=== PATIENT | female | born 1990 | race Hispanic/Latino ===

== ENCOUNTER 2017-05-14 06:49 | Day surgery (SDC) | payer OTHER ==
[2017-05-14] MEDS ORDERED: ceFAZolin IV 1 gm in Dextrose 1 GM/50 ML BAG IVPB ONE (07:19)
[2017-05-14] MEDS ORDERED: Lidocaine 2% w Epi 1:100,000 Inj IJ ONE (07:20)
[2017-05-14] MEDS ORDERED: EPINEPHrine 1:1000 Nasal Sol(30mL) ONE (07:20)
[2017-05-14] MEDS ORDERED: Acetaminophen-Codeine 300/30 mg Tab PO PRN (07:41)
[2017-05-14] MEDS ORDERED: Dextrose 5%/0.45% NS 1,000 ML IV SCH (07:45)
[2017-05-14] MEDS ORDERED: Lactated Ringer's 1,000 ML IV ONE (09:55)
[2017-05-14] MEDS ORDERED: Propofol 10 mg/ml Inj (20 ML) ONE (10:06)
[2017-05-14] MEDS ORDERED: Rocuronium 10 mg/ml (5 ml) ONE (10:07)
[2017-05-14] MEDS ORDERED: Midazolam 2 MG/2 ML VIAL ONE (10:09)
[2017-05-14] MEDS ORDERED: HYDROmorphone 0.5 mg/0.5 ml ISec IVP PRN (10:54)
[2017-05-14] MEDS ORDERED: Neostigmine Methylsulfate 3mg/3ml Syringe IV ONE (11:11)
[2017-05-14] MEDS ORDERED: HYDROmorphone 0.5 mg/0.5 ml ISec ONE (11:57)
[2017-05-14 12:44] VITALS: RESP 18
[2017-05-14 14:15] VITALS: BP 98/60; PULSE 74; TEMP 97.9; O2SAT 99
--- NOTE | 2017-05-14 20:02 | OP ---
PROCEDURE DATE: 05/14/2017 PREOPERATIVE DIAGNOSES: Deviated septum, enlarged turbinates, and sinusitis. POSTOPERATIVE DIAGNOSES: Deviated septum, enlarged turbinates, and sinusitis. PROCEDURE: Septoplasty, endoscopic bilateral maxillary antrostomy, endoscopic bilateral ethmoidectomy, endoscopic bilateral frontal sinusotomy, endoscopic bilateral sphenoidotomy, endoscopic bilateral inferior turbinate reduction. FINDINGS: Deviated septum, enlarged turbinates, maxillary antrum stenosed on both sides, sphenoid antrum stenosed on both sides, frontal recess stenosed on both sides, sinusitis changes noted at the ethmoid sinuses. DESCRIPTION OF PROCEDURE: The patient was brought into the room, placed in supine position. Anesthesia was initiated through an ET tube. Adrenaline-soaked pledgets were inserted into the nasal cavity, remained there for at least 5 minutes and removed. The septum was injected with lidocaine with epinephrine on both sides. A Lyford's incision was made on the left and mucoperichondrial flap was raised. A vertical incision was made in the cartilage leaving a 1.5 cm anterior and superior strut and the mucoperichondrial flap was raised on the other side. Deviated portion of the bone and cartilage were removed. A quilting suture was used to suture the two flaps together and closed the Livan's incision. A 0-degree scope was inserted into the nasal cavity. The inferior turbinates were noted to be enlarged. They were reduced using scissors going from inferior to superior and anterior to posterior direction on both sides, first on the right down to the left. Next, middle turbinates were injected on both side with lidocaine with epinephrine. Attention was turned to the left and the turbinate was medialized. The uncinate process was medialized using a freer elevator and removed using forceps. The debrider was used to enter the ethmoid bulla inferomedially going posteriorly to the basal lamella then anteriorly and superiorly until the ethmoid bulla was removed. The basal lamella was entered. The posterior ethmoid cells were entered and opened. The skull base was identified and followed anteriorly all the way to the area of the anterior ethmoid air cells. The maxillary antrum was located using a curved suction hooked up to navigation, which was noted to be stenosed and opened using forceps. The sphenoid antrum was noted to be stenosed and opened using forceps. The frontal recess was noted to be stenosed and opened using forceps. Attention was turned to the other side. The middle turbinate was medialized. The uncinate process was medialized using a freer elevator and removed using forceps. The ethmoid bulla was entered using a debrider inferomedially going posteriorly to the basal lamella then anteriorly and superiorly until the ethmoid bulla was removed. The basal lamella was entered. Posterior ethmoid cells were entered and opened. Skull base was identified and followed anteriorly all the way to the area of the anterior ethmoid air cells and the frontal recess was noted to be stenosed and opened using forceps. The sphenoid antrum was noted to be stenosed and opened using forceps. A curved suction hooked up to navigation was used to locate the maxillary antrum, which was noted to be stenosed and opened using forceps. Bleeding was controlled using Adrenaline-soaked pledgets. Splints were placed. The patient was taken off the anesthesia and taken to recovery room in stable manner. Nima Perera MD
== END 2017-05-14 13:15 | disposition home or self-care (01) ==
LOC: C.SDS 06:49
PROVIDERS: ATTEND Otolaryngology
DX: J34.2 Deviated nasal septum (principal); J34.3 Hypertrophy of nasal turbinates; J32.0 Chronic maxillary sinusitis
CPT/HCPCS: 30802; 31255; 31256; 31287; 88304; J0690; J1170; J2250; J2704; J2710; J3010; J7120